=== PATIENT | female | born 1990 | race Caucasian/White ===

== ENCOUNTER 2019-01-28 10:04 | Outpatient (CLI) | payer BC | END 2019-01-28 11:00 | disposition home or self-care (01) | LOC: DL.OBCHECK 10:04 | DX: O48.0 Post-term pregnancy (principal) | CPT/HCPCS: 59025 ==

== ENCOUNTER 2019-01-29 05:50 | Inpatient (IN) | payer BC ==
[2019-01-29] MEDS ORDERED: Lactated Ringers 1,000 ML IV ONE (06:00)
[2019-01-29] MEDS ORDERED: Tranexamic Acid 1,000 MG in Sodium Chloride 0.9% 100 ML IV PRN ×2 (06:00→09:41)
[2019-01-29] MEDS ORDERED: Oxytocin/Normal Saline 30 UNIT/500 ML BAG IV SCH (06:00)
[2019-01-29] MEDS ORDERED: Citric Acid/Sodium Citrate Solution 30 ML Cup PO ONE (06:00)
[2019-01-29] MEDS ORDERED: Sodium Chloride 0.9% 10 ML Syringe FLUSH PRN (06:00)
[2019-01-29] MEDS: Lactated Ringers 1,000 ML IV SCH ×4 (06:15→17:08)
[2019-01-29] MEDS ORDERED: Oxytocin/Normal Saline 60 UNIT/1,000 ML BAG ONE (07:17)
[2019-01-29] MEDS ORDERED: Methylergonovine 0.2 MG/1 ML Amp IM PRN (09:41)
[2019-01-29] MEDS ORDERED: Carboprost Tromethamine 250 MCG/1 ML Amp IM ONE (09:41)
[2019-01-29] MEDS ORDERED: Naloxone 2 MG/2 ML Syringe IVPUSH PRN (09:41)
[2019-01-29] MEDS ORDERED: Misoprostol 400 MCG (4 X 100 MCG TAB) RECTAL PRN (09:41)
[2019-01-29] MEDS ORDERED: diphenhydrAMINE 50 MG/ML SDV IVPUSH PRN (09:41)
[2019-01-29] MEDS ORDERED: Acetaminophen 325 MG Tab PO PRN (09:41)
[2019-01-29] MEDS ORDERED: ePHEDrine 50 MG/ML SDV IVPUSH PRN (09:41)
[2019-01-29] MEDS ORDERED: Ondansetron 4 MG/2 ML SDV IV PRN (09:41)
[2019-01-29] MEDS ORDERED: Lactated Ringers 1,000 ML IV SCH (09:45)
[2019-01-29] MEDS ORDERED: Oxytocin/Normal Saline 30 UNIT/500 ML BAG IV ONE (10:33)
--- NOTE | 2019-01-29 11:52 | OR ---
DATE: 01/29/2019 PROCEDURE PERFORMED: Primary low transverse section. INDICATION FOR PROCEDURE: Contracted pelvis with known macrosomia and 's abdominal circumference measuring larger than the head, therefore anticipating shoulder dystocia complications if the patient was to deliver vaginally. PREOPERATIVE DIAGNOSES: 1. A 40-5/7th weeks' intrauterine based on dating for intrauterine insemination by [facility]. 2. 2, para 0-0-1-0. 3. Blood type O positive, rubella immune, group B strep negative. 4. macrosomia on ultrasound. 5. Asthma. 6. Migraines. 7. Allergy history. POSTOPERATIVE DIAGNOSES: 1. A 40-5/7th weeks' intrauterine based on dating for intrauterine insemination by Reproductive Endocrinology. 2. 2, now para 1-0-1-1. 3. Blood type O positive, rubella immune, group B strep negative. 4. macrosomia on ultrasound. 5. Asthma. 6. Migraines. 7. Allergy history. NITRATOR OPERATOR: Robert Saunders MD. SECOND AUTOMATIC PROFILE SHAPER OPERATOR: Winter Garcia MS-III. ANESTHESIA: Spinal. BRIEF HISTORY: A 28-year-old female with the above-listed diagnoses, presented to the hospital for planned elective repeat primary section because of macrosomia and contracted pelvis with anticipation of significant shoulder dystocia if she was able to deliver vaginally. Please review admission history and physical for full details. The patient was given the option for attempt at vaginal delivery with induction of labor versus proceeding with primary and the risks and benefits of each were discussed with her and she agreed to proceed with . CONSENT: Discussed the indications, risks, benefits, and alternatives with the patient and appropriate consent forms have been signed and are on the chart. Discussed potential for risk of infection and plan for preoperative antibiotics; risk of blood loss requiring blood transfusion as well as its inherent risks; risk of injury to internal organs or adjacent structures including, but not limited to bowel, bladder, fallopian tubes, ovaries, baby, and any other adjacent structures and how repair would be done if necessary; potential for complications leading to the requirement of transfer for mother and/or baby to a larger facility; and remote risk of . DETAILS OF PROCEDURE: The patient was brought to the operating room and spinal anesthesia obtained. She was laid in the dorsal supine position with leftward tilt and Tirado indwelling catheter was placed. After that, skin was tested and a Pfannenstiel skin incision made at 8:07 a.m. and carried down to the underlying fascia using cautery and blunt dissection. Fascia incised in the midline and extended bilaterally using cautery and Camilo scissors. Superior fascial edge grasped, tented up, and rectus muscles dissected off with cautery and Camilo scissors. Inferior fascial edge grasped, tented up with Elan's, and rectus muscles dissected off with Camilo scissors. Peritoneal cavity entered with blunt finger dissection. An Dav retractor placed and a bladder flap then created with Metzenbaum's and appropriate site for hysterotomy identified and made with scalpel. Baby's head was brought up to the hysterotomy site and delivered. Then, mouth and nose were suctioned and the remainder of the infant was delivered thereafter. A 3-vessel umbilical cord was doubly clamped and cut, as the baby was being dried and stimulated. Baby then taken to the warmer for further evaluation. Cord blood sample was obtained, and placenta delivered by cord traction and concomitant uterine massage. Uterus then cleared off all clots and debris. There were adherent membranes mostly in the lower uterine segment, which were removed with ring forceps and dry lap sponges. Hysterotomy site was then closed with a running locked stitch of 0 Vicryl in the usual fashion. This was followed by a second imbricating layer of 0 Vicryl in the usual fashion with good hemostasis resulting. Dav retractor was then removed and paracolic gutters were cleared off all clots and debris. Dr. Saunders assisted in evaluation of the fallopian tubes and ovaries given the patient's infertility history and all anatomy was deemed to be normal. Hysterotomy site reinspected and remained hemostatic. This layer was irrigated and the peritoneal layer then reapproximated with an extra stitch of 0 Vicryl. The layer was then irrigated and fascia closed with a running stitch of 0 looped PDS in the usual fashion. However, when we were approximately 1-1/2 inches from the maternal right edge, there was a knot in the suture. Therefore, it was cut and tied in this location and the remainder of the incision was closed with 0 Vicryl making sure to cross over and include the area where the premature stitch was tied. The subcutaneous tissues were irrigated and any subcutaneous bleeders controlled with cautery. Skin then closed with a running stitch of 4-0 Monocryl on a Jayson needle. The patient tolerated the procedure well and end time was 9:04. Baby was delivered at 8:16. COMPLICATIONS: None. ESTIMATED BLOOD LOSS: 800 mL. URINE OUTPUT: 550 mL clear. FLUIDS: 600 mL of crystalloids and 250 mL of Pitocin. DISPOSITION: Mother and baby are in good condition. Mother will go to the PACU, and mother and baby will be reunited for skin to skin and to initiate breast-feeding. [facility] /[id number]
--- NOTE | 2019-01-29 12:13 | OBOUT ---
DATE: 01/29/2019 REASON: Preoperative assessment for primary low-transverse section. REPORT: Baseline heart rate 150, nonreactive. Reassuring heart tones noted. [place]: Intermittent contractions. Interpretation: Category 2 strip. The patient is doing well. Will proceed with primary low-transverse section at this time. The patient was seen and evaluated today by myself and Dr. Chacha Arias. NST report is under advisement of Dr. Arias. -Winter Garcia, MS-III [facility] /[id number] MTDD
[2019-01-29] MEDS: Simethicone 80 MG Tab.Chew PO SCH ×3 (14:50→21:00)
[2019-01-29] MEDS: Ketorolac 30 MG/ML SDV IVPUSH SCH ×2 (15:00→21:01)
[2019-01-29] MEDS: Docusate Sodium 100 MG Cap PO PRN (21:00)
[2019-01-30] MEDS: Ketorolac 30 MG/ML SDV IVPUSH SCH (03:54)
[2019-01-30] MEDS: Simethicone 80 MG Tab.Chew PO SCH ×4 (08:56→21:36)
[2019-01-30] MEDS: Docusate Sodium 100 MG Cap PO PRN ×2 (08:56→21:36)
[2019-01-30] MEDS: Prenatal Multivitamin with Calcium/Folic Acid/Iron Tab PO SCH (08:56)
[2019-01-30] MEDS: Acetaminophen/oxyCODONE 325-5 MG Tab PO PRN ×4 (08:56→21:36)
--- NOTE | 2019-01-30 14:40 | PN ---
DATE: 01/30/2019 SUBJECTIVE: The patient is a 28-year-old 2, now para 1-0-1-1, status post day #1 from a primary low-transverse section and delivery of a term male . Overnight, the patient denied any complaints. Tirado catheter was removed this morning without concerns. The patient endorses minimal cramping and lochia. The patient is . The patient is able to tolerate a general diet. Goals for today are to increase activity and activities of daily living. The patient denies any headaches, blurred vision, chest pain, shortness of breath, or abdominal pain. The patient does endorse mild lower extremity edema, decreasing from admission. OBJECTIVE: Vital Signs: Temp 98.1, HR 106 bpm, BP 128/66, RR 18 breaths per minute, and oxygen saturation 99% on room air. General: Awake, alert, sitting up in bed, in no acute distress. HEENT: Grossly normal. Pulmonary: Lungs are clear to auscultation bilaterally. Cardiovascular: Regular rate and rhythm. No murmurs noted. Abdomen: Soft, nontender, and nondistended. Uterus palpated at umbilicus, firm. Incision: Dressing is clean and dry. No show visible. No edema or erythema. Extremities: 1+ pitting edema in ankles bilaterally. No tenderness to palpation of calves bilaterally. Neurologic: Grossly normal. ASSESSMENT: The patient is a 28-year-old 2, now para 1-0-1-1, status post day #1 from primary low-transverse section. No concerns. PLAN: 1. Continue routine postoperative cares. 2. . The patient is working with application support consultant. The patient was seen and evaluated today by myself and Dr. Chacha Arias. Assessment and plan are under advisement of Dr. Arias. -Winter Garcia, -III [facility] /[id number] MTDD
[2019-01-30] MEDS: Ibuprofen 800 MG Tab PO PRN (21:35)
[2019-01-31] MEDS: Acetaminophen/oxyCODONE 325-5 MG Tab PO PRN ×3 (01:49→21:48)
[2019-01-31] MEDS: Ibuprofen 800 MG Tab PO PRN ×2 (06:17→16:57)
[2019-01-31] MEDS: Simethicone 80 MG Tab.Chew PO SCH ×3 (09:42→21:46)
[2019-01-31] MEDS: Docusate Sodium 100 MG Cap PO PRN ×2 (09:43→21:46)
[2019-01-31] MEDS: Prenatal Multivitamin with Calcium/Folic Acid/Iron Tab PO SCH (09:43)
[2019-01-31] MEDS ORDERED: Ondansetron 4 MG/2 ML SDV IV ONE (11:50)
[2019-01-31] MEDS ORDERED: Morphine PF 1 MG/ML Amp ONE (11:50)
[2019-01-31] MEDS ORDERED: Lactated Ringers 1,000 ML IV ONE (11:50)
[2019-01-31] MEDS ORDERED: Dexamethasone 4 MG/ML SDV IV ONE (11:50)
[2019-01-31] MEDS ORDERED: Ketorolac 30 MG/ML SDV IVPUSH ONE (11:50)
[2019-01-31] MEDS ORDERED: ePHEDrine 50 MG/ML SDV IV ONE (11:50)
[2019-01-31] MEDS: Ferrous Sulfate 325 MG Tab PO SCH (17:00)
[2019-02-01] MEDS: Simethicone 80 MG Tab.Chew PO SCH ×2 (00:49→13:09)
[2019-02-01] MEDS: Acetaminophen/oxyCODONE 325-5 MG Tab PO PRN ×2 (01:33→05:47)
[2019-02-01] MEDS: Ibuprofen 800 MG Tab PO PRN (01:34)
--- NOTE | 2019-02-01 09:00 | PN ---
DATE: 01/31/2019 SUBJECTIVE: Postoperative day #2, status post elective primary for macrosomia. The patient is doing well, ambulating and tolerating regular diet, passing flatus, and voiding without difficulties. No abdominal distention. Mild swelling reported. Blood flow has been minimal. No fever or chills. No chest pain or shortness of breath. seems to be going fairly well, although lot of milk supply at this time is questionable. Otherwise, she denies any acute concerns and nursing staff has not reported any problems. OBJECTIVE: Vital Signs: Temperature is 98.1, pulse 105, blood pressure 121/70, respiratory rate of 16, and O2 saturations 100% on room air. Heart: Regular without murmur. Lungs: Clear to auscultation. Abdomen: Soft and nontender. Fundus is firm and below the umbilicus. Skin: Incision is clean, dry, and intact. Extremities: Trace edema. No erythema or tenderness noted. LABORATORY DATA: Hemoglobin was 10.6 and platelets of 166 yesterday. ASSESSMENT: 1. Postoperative day #2 status post primary section. 2. 1, para 1-0-0-1. 3. Status post delivery of a macrosomic . [facility] /[id number]
--- NOTE | 2019-02-01 11:13 | DISCH ---
ADMITTING DIAGNOSES: 1. A 40-5/7th weeks' intrauterine based on dating for intrauterine insemination by Reproductive Endocrinology. 2. 2, para 0-0-1-0. 3. Blood type O positive, rubella immune, group B streptococcus negative. 4. macrosomia on ultrasound. 5. Asthma. 6. Migraines. 7. Allergy history. DISCHARGE DIAGNOSES: 1. A 40-5/7th weeks' intrauterine based on dating for intrauterine insemination by Reproductive Endocrinology. 2. 2, now para 1-0-1-1. 3. Status post day #3 from primary low-transverse section. 4. Blood type O positive, rubella immune, group B streptococcus negative. 5. macrosomia on ultrasound. 6. Asthma. 7. Migraines. 8. Allergy history. BRIEF HISTORY: The patient is a 28-year-old female with above-listed diagnoses, who presented to Labor and Delivery for planned elective primary because of macrosomia and contracted pelvis with anticipation of significant shoulder dystocia if she were able to deliver vaginally. The patient was given the option to attempt a vaginal delivery with induction of labor versus proceeding with primary section and the risks and benefits of each were discussed with her. Questions were answered, and she agreed to proceed with section. Please see admission history and physical along with operative report for further details. Via section, the patient delivered a term male infant at 0816 on 01/29/2019. scores were 7 and 9 at 1 and 5 minutes respectively. weight was 4380 g. length was 20- 3/4 inches long. There were no immediate postop complications or concerns noted. HOSPITAL COURSE: Good. The patient endorses minimal cramping and bleeding. Tirado catheter was pulled and the patient was able to ambulate well, urinate, pass flatus, and tolerate a general diet on postop day #1. The patient is . The patient is working with Jennifer, business development consultant, for this. The patient uses incentive spirometer as needed. Incision site has been monitored and is healing well, held together with Steri-Strips. The patient has no other concerns at this time. DISCHARGE CONDITION: Good. DISCHARGE PHYSICAL EXAMINATION: Vital Signs: Temp 98.3, HR 115 bpm, BP 121/79, RR 18 breaths per minute, oxygen saturation 99% on room air. General: Awake, alert, breast-feeding infant, in no acute distress. HEENT: Grossly normal. Pulmonary: Lungs are clear to auscultation bilaterally. No increased work of breathing noted. Cardiovascular: Regular rate and rhythm. Mild intermittent tachycardia when moving about the room. No murmurs noted. Abdomen: Soft, nondistended, nontender. Normoactive bowel sounds. Firm uterus palpated 1 cm below the umbilicus. Incision: Incision is clean and dry. No erythema or edema noted. Dressing is removed. Steri-Strips are in place with minimal serosanguineous show. Extremities: No edema or erythema noted. No tenderness to palpation of calves bilaterally. Neurologic: Grossly normal. LABORATORY DATA: Hematology: WBC 15, RBC 3.34, hemoglobin 10.6, hematocrit 32.1, MCV 96.1, MCH 31.7, MCHC 33, platelet count 166. DISCHARGE MEDICATIONS: 1. Percocet 5/325 mg daily to twice daily p.o., q.4 to 6 hours, p.r.n. for pain, 30 tablets provided. 2. Ibuprofen 800 mg p.o. t.i.d. p.r.n. for pain. 3. Iron 325 mg b.i.d. 4. Colace 100 mg p.o. b.i.d. 5. vitamin once daily p.o. DISPOSITION: Home with family. FOLLOWUP: The patient was advised to follow up in clinic for 6-week evaluation. The patient was also advised to bring the child for followup in clinic with Dr. Chacha Arias on 02/04/2019, at 1:45 p.m. The patient was also advised to bring child into Labor and Delivery for a followup total serum bilirubin lab draw tomorrow morning, 02/02/2019. Questions were answered and the patient is in agreement with this plan. Discharge evaluation was completed by myself and Dr. Chacha Arias. Discharge evaluation is under advisement of Dr. Chacha Arias. -Winter Garcia MS-III [facility] /[id number] [facility]
[2019-02-01] MEDS: Ferrous Sulfate 325 MG Tab PO SCH (13:09)
[2019-02-01] MEDS: Prenatal Multivitamin with Calcium/Folic Acid/Iron Tab PO SCH (13:09)
== END 2019-02-01 11:45 | disposition home or self-care (01) | DRG 540 ==
LOC: DL.OBCHECK 05:50 → DL.MS 05:51 → OBSVTOIN 08:16 → DL.MS 08:16
PROVIDERS: ADMIT Family Medicine; ATTEND Family Medicine
PROC: 10D00Z1 Extraction of Products of Conception, Low, Open Approach (ICD-10-PCS; principal; 2019-01-29)
PROC: 4A1HXCZ Monitoring of Products of Conception, Cardiac Rate, External Approach (ICD-10-PCS; 2019-01-29)
DX: O36.63X0 Maternal care for excessive fetal growth, third trimester, not applicable or unspecified (principal); O48.0 Post-term pregnancy; O99.52 Diseases of the respiratory system complicating childbirth; J45.909 Unspecified asthma, uncomplicated; O75.89 Other specified complications of labor and delivery; G43.909 Migraine, unspecified, not intractable, without status migrainosus; Z3A.40 40 weeks gestation of pregnancy; Z37.0 Single live birth
CPT/HCPCS: 36415; 59025; 85025; 85027; 86850; 86900; 86901; 94010; A9270-GY; J1100; J1580; J1885; J2274; J2405; J2590; J7050; J7120

== ENCOUNTER 2019-06-25 06:39 | Emergency (ER) | payer BC ==
[2019-06-25] MEDS ORDERED: Sodium Chloride 0.9% 1,000 ML IV ONE ×2 (06:53→09:55)
--- NOTE | 2019-06-25 07:13 | EDM.PDOC ---
ED HPI GENERAL MEDICAL PROBLEM - General Chief Complaint: Abdominal Pain Stated Complaint: STOMACH PAIN Time Seen by Provider: 06/25/19 07:12 Source of Information: Reports: Patient, RN, RN Notes Reviewed History Limitations: Reports: No Limitations - History of Present Illness INITIAL COMMENTS - FREE TEXT/NARRATIVE: Pt to ER with c/o RUQ pain that wraps around to the back. Patient states the she woke up to feed her son (nursing) and developed a severe pain in the RUQ that wrapped around to the back, and moved to the RLQ. Patient denies fever or chills. Admits to vomiting x1. She states she did have 2 BM's and the second one was diarrhea. Admits she still has her appendix and gallbladder. Last ate a cookie at 10pm, and stir nieto for supper around 2000 last night. Denies hx of pancreatitis or kidney stones. Onset: Today, Sudden Duration: Constant, Getting Worse Location: Reports: Abdomen Quality: Reports: Sharp, Stabbing Severity: Moderate Improves with: Reports: None Worsens with: Reports: None Associated Symptoms: Reports: Nausea/Vomiting Treatments HIGH SCHOOL GUIDANCE COUNSELOR: Reports: Other Medication(s) Right Lower Abdomen Pain Score (Numeric/FACES): 8 - Related Data Allergies Allergy/AdvReac Type Severity Reaction Status Date / Time cefaclor [From Ceclor] Allergy Unknown HIVES/URTIC Verified 06/25/19 06:43 ARIA dicloxacillin [Dicloxacillin] Allergy Unknown HIVE/URTICA Verified 06/25/19 06: 43 OLGA LIDIA Past Medical History HEENT History: Reports: None Cardiovascular History: Reports: None Respiratory History: Reports: None Gastrointestinal History: Reports: None Genitourinary History: Reports: None COPING 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: , Therapeutic Musculoskeletal History: Reports: Other (See Below) Other Musculoskeletal History: right finger surgery Neurological History: Reports: None Psychiatric History: Reports: None Endocrine/Metabolic History: Reports: None Hematologic History: Reports: None Oncologic (Cancer) History: Reports: None Dermatologic History: Reports: None - Infectious Disease History Infectious Disease History: Reports: None - Past Surgical History Head Surgeries/Procedures: Reports: None Social & Family History - Family History Family Medical History: Noncontributory - Tobacco Use Smoking Status *Q: Never Smoker Second Hand Smoke Exposure: No - Caffeine Use Caffeine Use: Reports: Coffee - Recreational Drug Use Recreational Drug Use: No ED ROS GENERAL - Review of Systems Review Of Systems: ROS reveals no pertinent complaints other than HPI. ED EXAM, GI/ABD - Physical Exam Exam: See Below Exam Limited By: No Limitations General Appearance: Alert, WD/WN, Mild Distress Eyes: Bilateral: Normal Appearance, EOMI Ears: Normal External Exam, Hearing Grossly Normal Nose: Normal Inspection Throat/Mouth: Normal Inspection, Normal Voice, No Airway Compromise Head: Atraumatic, Normocephalic Neck: Normal Inspection, Supple, Non-Tender, Full Range of Motion Respiratory/Chest: No Respiratory Distress, Lungs Clear, Normal Breath Sounds, No Accessory Muscle Use, Chest Non-Tender Cardiovascular: Normal Peripheral Pulses, Regular Rate, Rhythm, No Edema, No Gallop, No JVD, No Murmur, No Rub GI/Abdominal Exam: Normal Bowel Sounds, Soft, Tender (RUQ, RLQ) (Female) Exam: Deferred Rectal (Female) Exam: Deferred Back Exam: Normal Inspection, Full Range of Motion, NT Extremities: Normal Inspection, Normal Range of Motion, Non-Tender, Normal Capillary Refill, No Pedal Edema Neurological: Alert, Oriented, CN II-XII Intact, Normal Cognition, Normal Gait, Normal Reflexes, No Motor/Sensory Deficits Psychiatric: Normal Affect, Normal Mood Skin Exam: Warm, Dry, Intact, Normal Color, No Rash Lymphatic: No Adenopathy Course - Vital Signs Last Recorded V/S: Last Vital Signs Temp 97.4 F 06/25/19 06:44 Pulse 98 06/25/19 06:44 Resp 16 06/25/19 06:44 BP 113/80 06/25/19 06:44 Pulse Ox 98 06/25/19 06:44 - Orders/Labs/Meds Labs: Laboratory Tests 06/25/19 06/25/19 06/25/19 Range/Units 06:55 06:55 06:55 WBC 11.6 H (5.0-10.0) 10^3/uL RBC 4.86 (4.2-5.4) 10^6/uL Hgb 15.5 D (12.0-16.0) g/dL Hct 44.5 (37.0-47.0) % MCV 91.6 D (80-100) fL MCH 31.9 (27.0-34.0) pg MCHC 34.8 (33.0-35.0) g/dL Plt Count 190 (150-450) 10^3/uL Neut % (Auto) 80.4 H (42.2-75.2) % Lymph % (Auto) 11.7 L (20.5-50.1) % [place] % (Auto) 5.4 (2-8) % Eos % (Auto) 2.0 (1.0-3.0) % Baso % (Auto) 0.5 (0.0-1.0) % Sodium 136 (135-145) mmol/L Potassium 3.7 (3.6-5.0) mmol/L Chloride 103 (101-111) mmol/L Carbon Dioxide 23.0 (21.0-31.0) mmol/L Anion Gap 13.7 BUN 17 (7-18) mg/dL Creatinine 0.6 (0.6-1.3) mg/dL Est Cr Clr Drug Dosing 99.37 mL/min Estimated GFR (MDRD) > 60 BUN/Creatinine Ratio 28.33 Glucose 105 (74-105) mg/dL Lactic Acid 0.7 (0.5-2.2) mmol/L Calcium 9.0 (8.4-10.2) mg/dl Total Bilirubin 0.8 (0.2-1.0) mg/dL AST 12 (10-42) IU/L ALT 14 (10-60) IU/L Alkaline Phosphatase 91 (42-121) IU/L Total Protein 7.1 (6.7-8.2) g/dl Albumin 4.4 (3.2-5.5) g/dl Globulin 2.7 Albumin/Globulin Ratio 1.63 Amylase 43 (28-100) U/L Lipase 26 (22-51) U/L Urine Color (YELLOW) Urine Appearance (CLEAR) Urine pH (5.0-9.0) Ur Specific [place] (1.005-1.030) Urine Protein (NEGATIVE) Urine Glucose (UA) (NEGATIVE) Urine Ketones (NEGATIVE) Urine Occult Blood (NEGATIVE) Urine Nitrite (NEGATIVE) Urine Bilirubin (NEGATIVE) Urine Urobilinogen (0.2-1.0) mg/dL Ur Leukocyte Esterase (NEGATIVE) Urine HCG, Qual 06/25/19 06/25/19 Range/Units 06:59 06:59 WBC (5.0-10.0) 10^3/uL RBC (4.2-5.4) 10^6/uL Hgb (12.0-16.0) g/dL Hct (37.0-47.0) % MCV (80-100) fL MCH (27.0-34.0) pg MCHC (33.0-35.0) g/dL Plt Count (150-450) 10^3/uL Neut % (Auto) (42.2-75.2) % Lymph % (Auto) (20.5-50.1) % [place] % (Auto) (2-8) % Eos % (Auto) (1.0-3.0) % Baso % (Auto) (0.0-1.0) % Sodium (135-145) mmol/L Potassium (3.6-5.0) mmol/L Chloride (101-111) mmol/L Carbon Dioxide (21.0-31.0) mmol/L Anion Gap BUN (7-18) mg/dL Creatinine (0.6-1.3) mg/dL Est Cr Clr Drug Dosing mL/min Estimated GFR (MDRD) BUN/Creatinine Ratio Glucose (74-105) mg/dL Lactic Acid (0.5-2.2) mmol/L Calcium (8.4-10.2) mg/dl Total Bilirubin (0.2-1.0) mg/dL AST (10-42) IU/L ALT (10-60) IU/L Alkaline Phosphatase (42-121) IU/L Total Protein (6.7-8.2) g/dl Albumin (3.2-5.5) g/dl Globulin Albumin/Globulin Ratio Amylase (28-100) U/L Lipase (22-51) U/L Urine Color Dark yellow (YELLOW) Urine Appearance Clear (CLEAR) Urine pH 7.0 (5.0-9.0) Ur Specific [place] 1.020 (1.005-1.030) Urine Protein Negative (NEGATIVE) Urine Glucose (UA) Negative (NEGATIVE) Urine Ketones Negative (NEGATIVE) Urine Occult Blood Negative (NEGATIVE) Urine Nitrite Negative (NEGATIVE) Urine Bilirubin Negative (NEGATIVE) Urine Urobilinogen 0.2 (0.2-1.0) mg/dL Ur Leukocyte Esterase Negative (NEGATIVE) Urine HCG, Qual Negative Meds: Medications Discontinued Medications Generic Name Dose Route Start Last Admin Trade Name Jad PRN Reason Stop Dose Admin Fentanyl 50 mcg 06/25/19 07:23 06/25/19 07:34 Sublimaze IVPUSH 06/25/19 07:24 50 mcg ONETIME ONE Administration Sodium Chloride 1,000 mls @ 999 mls/hr 06/25/19 06:53 06/25/19 07:00 Normal Saline IV 06/25/19 07:53 999 mls/hr .BOLUS ONE Administration Ciprofloxacin/Dextrose 400 mg/ 200 mls @ 200 mls/hr 06/25/19 09:55 06/25/19 10:14 Premix IV 06/25/19 10:54 200 mls/hr ONETIME ONE Administration Clindamycin Phosphate 600 mg/ 104 mls @ 200 mls/hr 06/25/19 09:55 06/25/19 10 :08 Sodium Chloride IV 06/25/19 10:26 200 mls/hr ONETIME ONE Administration Sodium Chloride 1,000 mls @ 999 mls/hr 06/25/19 09:55 06/25/19 10:08 Normal Saline IV 06/25/19 10:55 999 mls/hr .BOLUS ONE Administration Iopamidol 75 ml 06/25/19 08:00 06/25/19 08:51 Isovue-300 (61%) IVPUSH 06/25/19 08:01 75 ml ONETIME ONE Administration Ondansetron HCl 4 mg 06/25/19 07:23 06/25/19 07:33 Zofran IV 06/25/19 07:24 4 mg ONETIME ONE Administration - Radiology Interpretation Free Text/Narrative:: CT Abdomen/Pelvis with contrast: FINDINGS: Liver: The liver is mildly fatty and enlarged at 205 mm. Gallbladder and bile ducts: Normal. No calcified stones. No ductal dilation. Pancreas: Normal. No ductal dilation. Spleen: The spleen is enlarged 127 mm. Adrenals: Normal. No mass. Kidneys and ureters: Normal. No hydronephrosis. Stomach and bowel: Unremarkable. No obstruction. No mucosal thickening. Appendix: The appendix is enlarged with mild surrounding inflammatory changes. Measures 9 mm. There is a calcification within it. Intraperitoneal space: Unremarkable. No free air. No significant fluid collection. Vasculature: Unremarkable. No abdominal aortic aneurysm. Lymph nodes: Unremarkable. No enlarged lymph nodes. Bladder: Unremarkable as visualized. Reproductive: There are possible multiple small follicles on the ovaries raising the question of polycystic ovary. Bones/joints: Unremarkable. No acute fracture. Soft tissues: Unremarkable. IMPRESSION: 1. Acute appendicitis with an appendiceal calcification. There is no evidence of perforation. 2. Possible polycystic ovaries. 3. THIS REPORT CONTAINS FINDINGS THAT MAY BE CRITICAL TO PATIENT CARE. The findings were verbally communicated via telephone conference with Kathe Saenz at 9:25 AM IN STORE MARKETER on 06/25/2019. The findings were acknowledged and understood. Thank you for allowing us to participate in the care of your patient. Dictated and Authenticated by: Sanket Heaton MD 06/25/2019 9:27 AM Central Time ([place] & [place]) See rad report - Re-Assessments/Exams Free Text/Narrative Re-Assessment/Exam: 06/25/19 11:18 Patient case discussed with Dr. Martin who agreed to accept the patient for transfer to [facility]. Departure - Departure Time of Disposition: 09:56 Disposition: DC/Tfer to Acute Hospital 02 Condition: Fair Clinical Impression: Appendicitis Qualifiers: Appendicitis type: acute appendicitis Acute appendicitis type: other Qualified Code(s): K35.890 - Other acute appendicitis without perforation or gangrene - Discharge Information *PRESCRIPTION DRUG MONITORING PROGRAM REVIEWED*: No *COPY OF PRESCRIPTION DRUG MONITORING REPORT IN PATIENT MALICK: No Referrals: PCP,None [Primary Care Provider] - Forms: ED Department Discharge, Interfacility Transfer AZAM
[2019-06-25] MEDS ORDERED: Ondansetron 4 MG/2 ML SDV IV ONE (07:23)
[2019-06-25] MEDS ORDERED: fentaNYL 100 MCG/2 ML SDV IVPUSH ONE (07:23)
[2019-06-25 07:24] LABS: ANION GAP 13.7; CHLORIDE,CL 103 mmol/L (101-111); SODIUM,NA 136 mmol/L (135-145)
[2019-06-25] MEDS ORDERED: Iopamidol 612 MG/ML 75 ML Bottle IVPUSH ONE (08:00)
[2019-06-25] MEDS ORDERED: Ciprofloxacin in D5W 400 MG in Premix Bag 1 BAG IV ONE ×2 (09:55)
[2019-06-25] MEDS ORDERED: Clindamycin Phosphate 600 MG in Sodium Chloride 0.9% 100 ML IV ONE (09:55)
== END 2019-06-25 10:41 ==
LOC: DL.ED 06:39
DX: K35.890 Other acute appendicitis without perforation or gangrene (principal); Z88.1 Allergy status to other antibiotic agents; Z88.8 Allergy status to other drugs, medicaments and biological substances
CPT/HCPCS: 36415; 74177; 80053; 81003; 81025; 82150; 83605; 83690; 85025; 96361; 96365; 96375; 99285; J0744; J2405; J3010; J3490; J7030; J7050; Q9967

== ENCOUNTER 2020-09-11 05:56 | Observation (INO) | payer BC ==
[2020-09-11] MEDS ORDERED: Morphine PF 1 MG/ML Amp ONE (07:50)
[2020-09-11] MEDS ORDERED: Ketorolac 30 MG/ML SDV IVPUSH ONE (07:50)
[2020-09-11] MEDS ORDERED: Ondansetron 4 MG/2 ML SDV IV ONE (07:50)
[2020-09-11] MEDS ORDERED: fentaNYL 100 MCG/2 ML SDV IV ONE (07:50)
[2020-09-11] MEDS ORDERED: Lactated Ringers 1,000 ML IV ONE (07:50)
[2020-09-11] MEDS ORDERED: Ketorolac 30 MG/ML SDV IVPUSH SCH (09:00)
[2020-09-11] MEDS ORDERED: Tranexamic Acid 1,000 MG in Sodium Chloride 0.9% 100 ML IV PRN (09:18)
[2020-09-11] MEDS ORDERED: Naloxone 2 MG/2 ML Syringe IVPUSH PRN (09:18)
[2020-09-11] MEDS ORDERED: ePHEDrine 50 MG/ML SDV IVPUSH PRN (09:18)
[2020-09-11] MEDS ORDERED: Misoprostol 400 MCG (4 X 100 MCG TAB) RECTAL PRN (09:18)
[2020-09-11] MEDS ORDERED: Acetaminophen 325 MG Tab PO PRN (09:18)
[2020-09-11] MEDS ORDERED: Carboprost Tromethamine 250 MCG/1 ML Amp IM PRN (09:18)
[2020-09-11] MEDS ORDERED: Ondansetron 4 MG/2 ML SDV IVPUSH PRN (09:18)
[2020-09-11] MEDS ORDERED: diphenhydrAMINE 50 MG/ML SDV IVPUSH PRN (09:18)
[2020-09-11] MEDS ORDERED: Acetaminophen/oxyCODONE 325-5 MG Tab PO PRN (09:18)
[2020-09-11] MEDS ORDERED: Methylergonovine 0.2 MG/1 ML Amp IM PRN (09:18)
[2020-09-11] MEDS: Ferrous Sulfate 325 MG Tab PO SCH (11:44)
[2020-09-11] MEDS: Prenatal Multivitamin with Calcium/Folic Acid/Iron Tab PO SCH (11:44)
[2020-09-11] MEDS: Simethicone 80 MG Tab.Chew PO SCH ×4 (11:45→20:33)
--- NOTE | 2020-09-11 13:12 | OR ---
DATE: 09/11/2020 PREPROCEDURE DIAGNOSES: 1. A 39 and 0/7 weeks' intrauterine based on last menstrual period (LMP) and 20-week ultrasound, 3, para 1-0-1-1. 2. Obesity. 3. Blood type O positive. Rubella immune. Group B strep negative. 4. Asthma. 5. History of macrosomia. 6. History of section x1, declines trial of labor after . 7. Varicella susceptible. 8. Coronavirus disease positive on admission and asymptomatic. POSTPROCEDURE DIAGNOSES: 1. A 39 and 0/7 weeks' intrauterine based on last menstrual period (LMP) and 20-week ultrasound, 3, now para 2-0-1-2. 2. Obesity. 3. Blood type O positive. Rubella immune. Group B strep negative. 4. Asthma. 5. History of macrosomia. 6. History of section x1, declines trial of labor after . 7. Varicella susceptible. 8. Coronavirus disease positive on admission and asymptomatic. 9. Delivery of macrosomic male infant. 10.Status post repeat section without complication. SURGEON: Chacha Cruz MD HANDER IN: Ottoniel Nelson MD ANESTHESIA: Spinal. BRIEF HISTORY: A 30-year-old female with the above-listed diagnoses, brought into the hospital for planned elective repeat section at term, was asymptomatic, but happened to test positive for COVID on admission. Discussion was had with Anesthesia as well as Dr. Nelson and agreed that we should proceed with surgery on a potential that she could become symptomatic in the future and she is also full term and there is no benefit to waiting for delivery at this time. DETAILS OF PROCEDURE: The patient was brought to the operating room and spinal anesthesia obtained. She was laid in the dorsal supine position with leftward tilt and Tirado indwelling catheter was placed. She was then prepped with ChloraPrep and sterile drapes applied. After testing, uterine incision made through her prior scar at 8:07 a.m. and carried down to the underlying fascia using cautery and finger dissection. The fascia was then cleared and incised with cautery and scissors. Superior fascial edge tented up and rectus muscles dissected off bluntly and with cautery. Inferior fascial edge tented up, and rectus muscles dissected off with cautery. Rectus muscle divided in the midline with blunt finger dissection and peritoneal cavity entered with hemostat and extended with traction. Uterus inspected. Baby confirmed in vertex position with copious amounts of amniotic fluid expected. The Dav retractor was placed and bladder flap created. Uterine incision was made superior to the previous scar and extended bilaterally with the Watt method. There was a lot of amniotic fluid noted and over 800 mL estimated. The baby's head was brought up to the hysterotomy site and along with concomitant fundal pressure, baby was delivered without complication. Baby was being suctioned and 3-vessel umbilical cord was doubly clamped and cut. Dr. Nelson then took the baby over to the warmer where he was initially doing well. Baby did go on to need 5 minutes of positive pressure ventilation for secondary apnea. See baby's notes for those details. In the meantime, cord blood sample was obtained and placenta delivered by cord traction and concomitant uterine massage, noted to be large and intact with 3 vessel cord. Uterus was cleared of all clots and debris with a dry lap sponge and a running locked suture of 0 Vicryl was used to close the hysterotomy site in usual fashion. One small area of central bleeding was controlled with a single figure- of-eight suture. Dav removed. The uterus was then exteriorized. Fallopian tubes, ovaries, and posterior uterus were all normal. Uterus was then placed back in the abdomen and pericolic gutters, cleared of all clots and debris. The hysterotomy site was reinspected and hemostatic. The peritoneal layer was then closed with a remnant of 0 Vicryl suture. This layer was then irrigated and fascia closed with a running suture of 0 looped PDS in the usual fashion. The subcutaneous tissues irrigated, cleared of all clots and debris and small bleeders controlled with cautery. Skin was then closed with a running stitch of 3-0 Vicryl in subcuticular fashion and then reinforced with Mastisol and Steri-Strips. The patient tolerated the procedure well. COMPLICATIONS: None. ESTIMATED BLOOD LOSS: 600 mL. URINE OUTPUT: 250 mL clear. FLUIDS: 1500 mL of crystalloids. FINDINGS: Term male infant, weighing 4410 g (9 pounds 12 ounces), scores are 8-4-6-8. time was 8:14 a.m. and surgery ended at 8:46 a.m. DISPOSITION: Mother to go to the PACU, baby to return to mother's room on CPAP. [facility] /[id number] MTDD
[2020-09-11] MEDS: Lactated Ringers 1,000 ML IV SCH ×2 (15:15→22:48)
[2020-09-11] MEDS: Ketorolac 30 MG/ML SDV IVPUSH SCH ×3 (18:01→20:30)
[2020-09-11] MEDS: Docusate Sodium 100 MG Cap PO PRN (20:34)
[2020-09-12] MEDS: Ketorolac 30 MG/ML SDV IVPUSH SCH (02:27)
[2020-09-12] MEDS: Acetaminophen/oxyCODONE 325-5 MG Tab PO PRN ×4 (05:49→20:07)
[2020-09-12] MEDS: Simethicone 80 MG Tab.Chew PO SCH ×4 (08:12→20:08)
[2020-09-12] MEDS: Prenatal Multivitamin with Calcium/Folic Acid/Iron Tab PO SCH (08:12)
[2020-09-12] MEDS: Docusate Sodium 100 MG Cap PO PRN ×2 (08:12→20:08)
[2020-09-12] MEDS: Ferrous Sulfate 325 MG Tab PO SCH (08:12)
[2020-09-12] MEDS: Ibuprofen 800 MG Tab PO PRN ×2 (10:21→17:58)
[2020-09-13] MEDS: Ibuprofen 800 MG Tab PO PRN ×2 (02:00→10:43)
[2020-09-13] MEDS: Acetaminophen/oxyCODONE 325-5 MG Tab PO PRN ×2 (02:01→08:23)
--- NOTE | 2020-09-13 08:02 | PN ---
DATE: 09/12/2020 Postop day #1, status post repeat low transverse . SUBJECTIVE: The patient is tolerating p.o., ambulating, urinating, and passing flatus. Tirado was pulled earlier today. OBJECTIVE: Vital signs: Temperature 98.9, heart rate 87, blood pressure 102/60, and respiratory rate 18. Output overnight has been adequate. Lungs: Clear to auscultation bilaterally. No increased work of breathing. Heart: S1, S2. Regular rate and rhythm. Abdomen: Firm uterus around the umbilicus. Steri-Strips over incision appears dry and intact. Extremities: Trace pedal edema. No calf pain. LABORATORY DATA: White cell count 12.1, hemoglobin 10.6, and platelets 140. ASSESSMENT: 1. Postoperative day #1, status post repeat low transverse section. 2. Anemia of acute blood loss. Hemoglobin dropping down to 10.6. 3. Gestational versus thrombocytopenia. 4. COVID positive status. PLAN: Baby went to the NICU last night in [place]. The patient may want to go home tomorrow. I did discuss with her routine cares and following clinically and closely at this point in time. We will repeat CBC tomorrow morning. The patient understands, agrees to above treatment plan. The patient denies any COVID type symptoms at this point in time. Her vitals have been stable. O2 saturations have been adequate when checked. We will proceed as above. [facility] /[id number]
[2020-09-13] MEDS: Ferrous Sulfate 325 MG Tab PO SCH (08:23)
[2020-09-13] MEDS: Simethicone 80 MG Tab.Chew PO SCH (08:23)
[2020-09-13] MEDS: Docusate Sodium 100 MG Cap PO PRN (08:24)
[2020-09-13] MEDS: Prenatal Multivitamin with Calcium/Folic Acid/Iron Tab PO SCH (08:24)
--- NOTE | 2020-09-13 12:40 | DISCH ---
ADMITTING DIAGNOSES: 1. Intrauterine at 39 weeks based on LMP and 20-week ultrasound. 2. Obesity. 3. Blood type O positive. 4. Rubella immune. 5. Group B Streptococcus negative. 6. Asthma. 7. History of macrosomia. 8. History of , declined trial of labor after . 9. Varicella susceptible. 10.Coronavirus disease positive on admission and asymptomatic. DISCHARGE DIAGNOSES: 1. Intrauterine at 39 weeks based on LMP and 20-week ultrasound. 2. Obesity. 3. Blood type O positive. 4. Rubella immune. 5. Group B Streptococcus negative. 6. Asthma. 7. History of macrosomia. 8. History of , declined trial of labor after . 9. Varicella susceptible. 10.Coronavirus disease positive on admission and asymptomatic. 11.Status post repeat without complication. 12.Delivery of macrosomic male infant. 13.Gestational thrombocytopenia/ thrombocytopenia - resolving. HISTORY OF PRESENT ILLNESS: Please see H and P. SUMMARY OF HOSPITAL COURSE: The patient was admitted on the above date with above diagnosis, underwent an elective repeat low transverse with an EBL of 600 mL under a spinal anesthetic yielding a male weighing 4410 g (9 pounds 12 ounces) with score of 8, 4, 6 and 8. Please see op report for further details. Postop day #1, please see progress note. Postop day #2, date of discharge, the patient was tolerating p.o., was ambulating, urinating, passing flatus, requesting discharge. PHYSICAL EXAMINATION: Vital Signs: Last set of vitals, temperature 98.2, heart rate 78, blood pressure 108/75, respiratory rate 16. Lungs: Clear to auscultation bilaterally. Heart: S1-S2. Regular rate and rhythm. Abdomen: Firm uterus at the umbilicus. Extremities: No peripheral edema. No calf pain. LABORATORY DATA: Upon date of discharge, white cell count 10.5, hemoglobin 10.7 which has been stable, and platelets up to 151,000. CONDITION ON DISCHARGE COMPARED TO CONDITION ON ADMISSION: Improved. DISCHARGE INSTRUCTIONS: 1. Diet as tolerated. 2. Activity: No lifting more than 20 pounds. No sit-ups or straining and pelvic rest for next 6 weeks with immediate return to fertility discussed with the patient. Reasons to return or go to the emergency room were discussed with the patient in detail including, but not limited to temperature greater than 100.4, foul- smelling discharge, red hot tender breasts, or increasing pain, drainage, or redness around the incision. DISCHARGE MEDICATIONS: [id number] Tylenol and ibuprofen for pain; Percocet 5/325 1 to 2 q.6 hours p.r.n., #20, no refills. Discussed the use of this medication, adverse and unwanted effects, as well as precautions with driving. FOLLOWUP: Asked that she call Dr. Arias's office on 09/14/2020 for followup. Of note, the patient's baby was transferred to the NICU on the day of the C- section due to respiratory distress. [facility] /[id number]
== END 2020-09-13 11:30 | disposition home or self-care (01) ==
LOC: DL.OBCHECK 05:56 → UNDOADMOB 06:14 → DL.OB 06:14 → UNDOADMOB 07:24 → DL.OB 07:24
PROVIDERS: ADMIT Family Medicine; ATTEND Family Medicine
DX: O34.219 Maternal care for unspecified type scar from previous cesarean delivery (principal); U07.1 COVID-19; J45.909 Unspecified asthma, uncomplicated; E66.9 Obesity, unspecified; D62 Acute posthemorrhagic anemia; Z87.59 Personal history of other complications of pregnancy, childbirth and the puerperium; Z37.0 Single live birth; Z88.8 Allergy status to other drugs, medicaments and biological substances; Z88.1 Allergy status to other antibiotic agents; Z79.899 Other long term (current) drug therapy; Z3A.39 39 weeks gestation of pregnancy; Z78.9 Other specified health status
CPT/HCPCS: 01961; 36415; 51702; 59409; 85027; A9270; J1885; J2274; J2405; J3010; J7120